=== PATIENT | female | born 1935 | race Caucasian/White ===

== ENCOUNTER 2018-05-12 11:09 | Emergency (ER) | payer OTHER ==
[~2018-05-12] VITALS: Ht 170.2 cm; Wt 109.0 kg
[~2018-05-12 11:09] MED LIST: A-C CARBAMIDE PO; ALDACTONE25 MG PO; ASPIRIN81 M2 PO; B COMPLETE1 EACH PO; BACTRIM,SEPT1 TABLET PO; BALANCED B COM1 EAC2 PO; CALCIUM 500 +1 EACH PO; CARDIO-PLUS PO; CARDIOVID PLUS1 EACH PO; CATAPLEX B PO; CEFTIN250 MG PO; CEFUROXIME500 MG PO; CIPRO500 MG PO; COLCRYS0.6 MG PO; COLON HERBA1 CAPSULE PO; DIALYVITE 800-0.8 MG PO; DIOVAN HCT 11 TABLET PO; DIOVAN HCT 31 TABLE1 PO; DUONEB 2.5-0.5 M3 ML AEROSOL; DUONEB 2.5-0.5 M3 ML PEP; FEMARA2.5 MG PO; FIBER THERAPY660 G1 PO; FLONASE16 G1 BOTH NARES; K-DUR20 MEQ PO; LANTUS 10100 UNITS/ SC; LANTUS 3 M100 UNITS1 SQ; LASIX40 MG PO; LETROZOLE2.5 MG PO; LEVAQUIN500 MG PO; LEVOFLOXACIN500 MG PO; LEVOTHYROXINE100 MCG PO; LO-DOSE ASPIRIN81 M1 PO; LOPRESSOR100 M1 PO; LOSARTAN POTAS100 MG PO; METOPROLOL SUCC50 MG PO; NABI650T PO; NIACIN500 M4 PO; NIACINAMIDE100 MG PO; NIACINAMIDE500 MG PO; NOVOLOG 10100 UNITS/ SC; OMEGA 3 500 SO1 EACH PO; OMEGA-3 + VITA1 EAC2 PO; OMEGA-31000 M1 PO; OXAYDO5 MG PO; PERCOCET 5/31 TABLET PO; POTASSIUM CHLO20 ME2 PO; PREDNISONE10 MG PO; PROVENTIL,2.5 MG/3 M IH; PROVENTIL2.5 MG/3 M IH; RED YEAST RICE600 M1 PO; ROBITUSSIN AC,T10 ML PO; SIMVASTATIN40 MG PO; SPIRONOLACTONE25 MG PO; ST. JOSEPH ASPI81 MG PO; SYNTHROID100 MCG PO; TYLENOL WITH C1 EACH PO; VALSARTAN-HCTZ1 EAC1 PO; VENTOLIN HFA18 GM IH; VITAMIN D2000 UNIT PO; VITAMIN D32000 UNI1 PO; [UNRECOGNIZED DRUG - CODE] PO; [UNRECOGNIZED DRUG - OTHER] PO; [UNRECOGNIZED DRUG - OTHER] PO; [UNRECOGNIZED DRUG - OTHER] PO
[2018-05-12 13:26] LABS: APPEARANCE CLEAR ((CLEAR)); BILIRUBIN NEGATIVE; BLOOD NEGATIVE; COLOR YELLOW ((YELLOW)); GLUCOSE (STRIP) NEGATIVE; KETONES NEGATIVE; LEUKOCYTES NEGATIVE; NITRITE NEGATIVE; PROTEIN (STRIP) NEGATIVE; SPECIFIC GRAVITY 1.008 (1.000-1.030); UROBILINOGEN 0.2 MG/DL (0.2-1.0)
[2018-05-12] MEDS ORDERED: LIDODERM 5% P1 PATCH TD (15:08)
[2018-05-12 15:50] VITALS: BP 133/84
== END 2018-05-12 16:01 | disposition home or self-care (01) ==
LOC: EME 11:09
PROVIDERS: Family Medicine
DX: S39.012A Strain of muscle, fascia and tendon of lower back, initial encounter (principal); W18.2XXA Fall in (into) shower or empty bathtub, initial encounter; X50.1XXA Overexertion from prolonged static or awkward postures, initial encounter; M51.37 Other intervertebral disc degeneration, lumbosacral region; K80.20 Calculus of gallbladder without cholecystitis without obstruction; N28.1 Cyst of kidney, acquired; K57.30 Diverticulosis of large intestine without perforation or abscess without bleeding; I12.9 Hypertensive chronic kidney disease with stage 1 through stage 4 chronic kidney disease, or unspecified chronic kidney disease; E11.22 Type 2 diabetes mellitus with diabetic chronic kidney disease; E03.9 Hypothyroidism, unspecified; N18.9 Chronic kidney disease, unspecified; Z79.4 Long term (current) use of insulin; Z85.3 Personal history of malignant neoplasm of breast; Z90.13 Acquired absence of bilateral breasts and nipples; E66.9 Obesity, unspecified; Z68.37 Body mass index [BMI] 37.0-37.9, adult; Z79.82 Long term (current) use of aspirin
CPT/HCPCS: 72131; 81003; 99281; 99285